=== PATIENT | female | born 1945 | race Caucasian/White ===

== ENCOUNTER → 2017-04-02 | Outpatient (CLI) | payer MEDICARE, OTHER ==
[~2017-04-02] MED LIST: CALTRATE-600 W600 MG PO; CELEBREX 200MG200 MG PO; EVISTA; FISH OIL CONC1000 MG PO; FOLIC ACID; FOSAMAX5 MG; LEVOTHYROXIN0.025 M1 PO; MULTIPLE VITAMI1 TAB PO; MVI; NIASPAN1000 MG PO; NORCO 325 MG-51 TAB PO; SINGULAIR10 MG PO; SLOW-MAG 6464 MG/TAB PO; ULTRAM50 MG PO; VIT D 3; WELLBUTRIN SR150 M1 PO; ZYRTEC
== END ==
LOC: MC.RAD 10:01
DX: Z12.31 Encounter for screening mammogram for malignant neoplasm of breast (principal); Z98.890 Other specified postprocedural states

== ENCOUNTER → 2017-05-20 | Outpatient (REF) | LOC: ZLAB.WCH 14:32 | DX: Z01.89 Encounter for other specified special examinations (principal) ==

== ENCOUNTER → 2018-04-14 | Outpatient (CLI) | payer MEDICARE, OTHER | LOC: MC.RAD 10:58 | DX: Z12.31 Encounter for screening mammogram for malignant neoplasm of breast (principal) ==

== ENCOUNTER → 2018-05-21 | Outpatient (REF) | LOC: ZLAB.WCH 16:11 | DX: Z01.89 Encounter for other specified special examinations (principal) ==

== ENCOUNTER → 2019-06-24 | Outpatient (CLI) | payer MEDICARE, OTHER | LOC: MC.RAD 15:21 | DX: Z12.31 Encounter for screening mammogram for malignant neoplasm of breast (principal); Z90.13 Acquired absence of bilateral breasts and nipples ==

== ENCOUNTER 2021-12-18 12:45 | Outpatient (RCR) | payer MEDICARE, OTHER | END 2021-12-22 | disposition home or self-care (01) | LOC: WSST | DX: R13.10 Dysphagia, unspecified (principal); R49.0 Dysphonia; J38.01 Paralysis of vocal cords and larynx, unilateral ==